=== PATIENT | female | born 1990 | race Caucasian/White ===

== ENCOUNTER 2025-05-28 23:37 | Emergency (ER) | payer OTHER ==
[~2025-05-28] VITALS: Ht 160 cm; Wt 80.0 kg
[2025-05-28 23:51] VITALS: TEMP 36.9; O2SAT 99
[2025-05-29 03:16] LABS: BASOPHILS % 1.1 % (0.0-2.0); EOSINOPHILS % 3.5 % (0.0-5.0); HEMATOCRIT. 31.5 % (36.0-48.0); HEMOGLOBIN. 9.9 g/dL (12.0-16.0); LYMPHOCYTES % 24.3 % (20.0-50.0); MEAN PLATELET VOLUME 8.6 fl (7.4-10.4); MONOCYTES % 5.6 % (2.0-8.0); NEUTROPHILS % 65.5 % (40.0-76.0); PLATELET 293 x1000/uL (130-400); RED BLOOD CELL COUNT 4.42 mill/uL (4.2-5.4); RED CELL DISTRIBUTION WIDTH 21.0 % (11.6-14.6)
[2025-05-29 03:29] LABS: CREATININE 0.9 mg/dL (0.6-1.0); UREA NITROGEN BLOOD 10 mg/dL (9-23)
[2025-05-29] MEDS ORDERED: IRON15TA3 MT (03:36)
[2025-05-29 03:51] VITALS: BP 122/66; PULSE 74; RESP 16; O2SAT 98
== END 2025-05-29 03:55 | disposition home or self-care (01) ==
LOC: ER 05-29 00:24
DX: D64.9 Anemia, unspecified (principal); Z98.890 Other specified postprocedural states; Z88.0 Allergy status to penicillin
CPT/HCPCS: 36415; 80048; 85025; 99283